=== PATIENT | male | born 1975 | race Caucasian/White ===

== ENCOUNTER 2019-02-03 15:37 | Emergency (ER) | payer MEDICAID ==
[~2019-02-03] VITALS: Ht 195.6 cm; Wt 126.0 kg
[~2019-02-03 15:37] MED LIST: ONDA8TAB6 PO; ORPH100T2 PO; OXYC-150 PO
[2019-02-03] MEDS ORDERED: dexamethasone sod phosphate 10mg/ml inj IM STA (16:36)
[2019-02-03] MEDS ORDERED: HYDR-4383 PO (18:05)
[2019-02-03] MEDS ORDERED: NAPR-56 PO (18:05)
[2019-02-03] MEDS ORDERED: PRED10TA23 PO (18:05)
[2019-02-03] MEDS ORDERED: HYDROcodone/acetaminophen 10/325mg tab PO ONE (18:10)
[2019-02-03 19:10] VITALS: BP 137/89
== END 2019-02-03 19:12 | disposition home or self-care (01) ==
LOC: ER 15:38
DX: S16.1XXA Strain of muscle, fascia and tendon at neck level, initial encounter (principal); R49.0 Dysphonia; K04.7 Periapical abscess without sinus; K02.9 Dental caries, unspecified; G89.29 Other chronic pain; Z91.018 Allergy to other foods; Z79.899 Other long term (current) drug therapy; Z87.442 Personal history of urinary calculi; W18.39XA Other fall on same level, initial encounter; Y93.89 Activity, other specified; Y92.89 Other specified places as the place of occurrence of the external cause; Y99.8 Other external cause status
CPT/HCPCS: 70450; 70490; 96372; 99284; J1100

== ENCOUNTER 2019-09-26 19:45 | Emergency (ER) | payer MEDICAID ==
[~2019-09-26] VITALS: Ht 195.6 cm; Wt 125.0 kg
[~2019-09-26 19:45] MED LIST changes: +HYDR-4383 PO
[2019-09-26 20:07] VITALS: BP 135/99
[2019-09-26] MEDS ORDERED: HYDR-4353 PO (22:19)
[2019-09-26] MEDS ORDERED: naproxen 500mg tablet PO ONE (22:20)
[2019-09-26] MEDS ORDERED: HYDROmorphone 2mg tablet PO ONE (22:20)
== END 2019-09-26 22:39 | disposition home or self-care (01) ==
LOC: ER 19:51
DX: G89.28 Other chronic postprocedural pain (principal); M79.671 Pain in right foot; G89.29 Other chronic pain; Z87.442 Personal history of urinary calculi; Z91.018 Allergy to other foods
CPT/HCPCS: 99283

== ENCOUNTER 2019-09-27 09:52 | Emergency (ER) | payer MEDICAID ==
[~2019-09-27] VITALS: Ht 195.6 cm; Wt 140.0 kg
[~2019-09-27 09:52] MED LIST changes: +HYDR-4353 PO
[2019-09-27 09:54] VITALS: BP 120/71
--- NOTE | 2019-09-27 10:12 | NUR ---
pt came in to have cast taken off
--- NOTE | 2019-09-27 10:39 | NUR ---
Splint taken off by ED Techs, Provider informed and in room for exam.
[2019-09-27] MEDS ORDERED: HYDROcodone/acetaminophen 5mg/325mg tablet PO ONE (10:50)
== END 2019-09-27 12:03 | disposition home or self-care (01) ==
LOC: ER 09:52
DX: G89.18 Other acute postprocedural pain (principal); M79.671 Pain in right foot; G89.29 Other chronic pain; F32.9 Major depressive disorder, single episode, unspecified; Z87.442 Personal history of urinary calculi; Z98.890 Other specified postprocedural states; Z79.899 Other long term (current) drug therapy
CPT/HCPCS: 73610; 99283

== ENCOUNTER 2019-10-21 01:51 | Emergency (ER) | payer MEDICAID ==
[~2019-10-21] VITALS: Ht 195.6 cm; Wt 131.8 kg
[~2019-10-21 01:51] MED LIST changes: -HYDR-4353 PO
[2019-10-21] MEDS ORDERED: OXYC-511 PO (02:21)
[2019-10-21] MEDS ORDERED: NAPR-996 PO (02:21)
[2019-10-21] MEDS ORDERED: ZOLP10TA5 PO (02:21)
[2019-10-21] MEDS ORDERED: MORP30TA6 PO (02:21)
[2019-10-21] MEDS ORDERED: GABA800T11 PO (02:21)
[2019-10-21] MEDS ORDERED: DULO20CA18 PO (02:24)
[2019-10-21 02:38] LABS: BASOPHILS # (AUTO) 0.1 X10'3 (0-0.2); BASOPHILS % (AUTO) 1.3 % (0-1); EOSINOPHILS # (AUTO) 0.2 X10'3 (0-0.9); EOSINOPHILS % (AUTO) 1.6 % (0-6); HEMOGLOBIN 12.5 g/dl (14.0-17.9); LYMPHOCYTES # (AUTO) 1.9 X10'3 (1.1-4.8); LYMPHOCYTES % (AUTO) 19.6 % (21-51); MEAN CORPUSCULAR HEMOGLOBIN 27.7 PG (27.0-31.0); MEAN CORPUSCULAR HGB CONC 33.7 g/dL (33.0-36.5); MEAN CORPUSCULAR VOLUME 82.1 FL (78-98); MEAN PLATELET VOLUME 6.8 FL (7.4-10.4); MONOCYTES # (AUTO) 0.3 X10'3 (0-0.9); MONOCYTES % (AUTO) 3.4 % (2-12); NEUTROPHILS # (AUTO) 7.1 X10'3 (1.8-7.7); NEUTROPHILS % (AUTO) 74.1 % (42-75); PLATELET COUNT 493 X10'3 (140-440); RED BLOOD COUNT 4.51 X10'6 (4.70-6.10); RED CELL DISTRIBUTION WIDTH 15.1 % (11.5-14.5); WHITE BLOOD COUNT 9.6 X10'3 (4.5-11.0)
[2019-10-21 02:47] LABS: ALANINE AMINOTRANSFERASE 13 U/L (12-78); ALBUMIN 3.3 G/DL (3.4-5.0); ALBUMIN/GLOBULIN RATIO 0.7 (1.1-1.5); ALKALINE PHOSPHATASE 88 IU/L (46-116); ANION GAP 7 (8-16); ASPARTATE AMINO TRANSFERASE 23 U/L (10-37); BILIRUBIN,TOTAL 0.4 MG/DL (0.1-1.0); BLOOD UREA NITROGEN 13 MG/DL (7-18); BUN/CREATININE RATIO 14.9 (5.4-32.0); CALCIUM 8.6 MG/DL (8.5-10.1); CHLORIDE 106 MMOL/L (99-107); CREATININE 0.87 MG/DL (0.60-1.10); GLUCOSE 93 MG/DL (70-104); POTASSIUM 4.1 MMOL/L (3.5-5.1); SODIUM 140 MMOL/L (135-145); TOTAL CARBON DIOXIDE 26.7 MMOL/L (24-32); TOTAL PROTEIN 7.8 G/DL (6.4-8.2); eGFR > 90 ML/MIN
[2019-10-21 02:54] LABS: CLARITY,URINE CLEAR (Clear); COLOR,URINE YELLOW (Yellow); GLUCOSE, URINE NEGATIVE (Neg); KETONES,URINE NEGATIVE (Neg); LEUKOCYTE ESTERASE ,URINE NEGATIVE (Neg); NITRITES, URINE NEGATIVE (Neg); OCCULT BLOOD,URINE NEGATIVE (Neg); PROTEIN,URINE NEGATIVE (Neg)
[2019-10-21 03:02] LABS: ETHANOL < 0.010 GM/DL (0.0-0.010)
--- NOTE | 2019-10-21 03:07 | NUR ---
Patient changed into green scrubs. Patient is wearing white undergarment top and bottom which he states are, "sacred" and refuses to remove them due to mosque beliefs.
[2019-10-21 03:09] LABS: URINE AMPHETAMINE SCREEN NEGATIVE (Neg); URINE BARBITUATE SCREEN NEGATIVE (Neg); URINE BENZODIAZEPINES SCREEN POSITIVE (Neg); URINE CANNABINOID SCREEN POSITIVE (Neg); URINE COCAINE SCREEN NEGATIVE (Neg); URINE METHADONE SCREEN NEGATIVE (Neg); URINE OPIATE SCREEN POSITIVE (Neg); URINE PHENCYCLIDINE SCREEN NEGATIVE (Neg)
[2019-10-21 03:12] LABS: UA COLLECTION TYPE CLN CATCH MIDSTREAM
[2019-10-21] MEDS ORDERED: oxyCODONE/APAP 10/325mg tablet PO PRN (03:30)
[2019-10-21] MEDS ORDERED: naproxen 500mg tablet PO PRN (03:30)
[2019-10-21] MEDS ORDERED: DULO30CA52 PO (03:34)
[2019-10-21] MEDS ORDERED: BUSP10TA3 PO (03:34)
[2019-10-21 05:57] VITALS: BP 127/80
--- NOTE | 2019-10-21 05:59 | NUR ---
pt is denying being suicidal and denies ever making statements that he is suicidal. pt reports having depression and a difficult time with his 's medical needs but states that he wants to live for his kids. pt c/o pain in left ankle from a recent surgery.
--- NOTE | 2019-10-21 06:19 | NUR ---
Received Report from Bal ZUNIGA, pt in bed sleeping will continue to monitor.
--- NOTE | 2019-10-21 07:35 | NUR ---
Pt continues to be asleep, all needs met at this time.
[2019-10-21] MEDS ORDERED: morphine ER 30mg tablet PO SCH (08:00)
[2019-10-21] MEDS ORDERED: gabapentin 400mg capsule PO SCH (08:00)
[2019-10-21] MEDS ORDERED: duloxetine 20mg capsule.DR PO SCH (08:00)
[2019-10-21] MEDS ORDERED: duloxetine 30mg CAPSULE.DR PO SCH (08:00)
--- NOTE | 2019-10-21 08:20 | NUR ---
PACKET FAXED TO [facility]
--- NOTE | 2019-10-21 10:55 | NUR ---
[facility] IS RELEASING PT. pT GIVEN BELONGINGS AND IS GETTING DRESSED.
[2019-10-21] MEDS ORDERED: zolpidem 5mg tablet PO PRN (21:00)
== END 2019-10-21 11:17 | disposition home or self-care (01) ==
LOC: ER 01:52
DX: F32.9 Major depressive disorder, single episode, unspecified (principal); F12.90 Cannabis use, unspecified, uncomplicated; G89.29 Other chronic pain; Z87.442 Personal history of urinary calculi; Z98.890 Other specified postprocedural states; Z79.899 Other long term (current) drug therapy
CPT/HCPCS: 36415; 80053; 80305; 80320; 81003; 84443; 85025; 99285

== ENCOUNTER 2024-04-15 06:36 | Emergency (ER) | payer MEDICAID ==
[~2024-04-15] VITALS: Ht 195.6 cm; Wt 145.7 kg
[~2024-04-15 06:36] MED LIST changes: +DULO20CA18 PO; +DULO30CA52 PO; +GABA800T11 PO; -HYDR-4383 PO; +MORP30TA6 PO; +NAPR-996 PO; -ONDA8TAB6 PO; -ORPH100T2 PO; -OXYC-150 PO; +OXYC1TAB17 PO; +ZOLP10TA5 PO
[2024-04-15 08:22] LABS: BASOPHILS % (AUTO) 0.7 % (0-1); EOSINOPHILS # (AUTO) 0.1 X10'3 (0-0.9); EOSINOPHILS % (AUTO) 1.5 % (0-6); HEMATOCRIT 38.3 % (42.0-52.0); HEMOGLOBIN 12.1 g/dl (14.0-17.9); MEAN CORPUSCULAR HEMOGLOBIN 24.6 PG (27.0-31.0); MEAN CORPUSCULAR HGB CONC 31.5 g/dL (33.0-36.5); MEAN CORPUSCULAR VOLUME 78.1 FL (78-98); MONOCYTES # (AUTO) 0.4 X10'3 (0-0.9); MONOCYTES % (AUTO) 8.5 % (2-12); NEUTROPHILS # (AUTO) 3.6 X10'3 (1.8-7.7); NEUTROPHILS % (AUTO) 70.3 % (42-75); PLATELET COUNT 467 X10'3 (140-440); RED BLOOD COUNT 4.91 X10'6 (4.70-6.10); RED CELL DISTRIBUTION WIDTH 21.2 % (11.5-14.5); WHITE BLOOD COUNT 5.2 X10'3 (4.5-11.0)
[2024-04-15 08:31] LABS: APTT 29 SECONDS (22-32); PROTHROMBIN TIME 10.4 SECONDS (9.0-12.0)
[2024-04-15 08:36] LABS: ALANINE AMINOTRANSFERASE 26 U/L (12-78); ALBUMIN 3.6 G/DL (3.4-5.0); ALBUMIN/GLOBULIN RATIO 0.9 (1.1-1.5); ALKALINE PHOSPHATASE 66 IU/L (46-116); ANION GAP 8 (8-16); ASPARTATE AMINO TRANSFERASE 19 U/L (10-37); BILIRUBIN,TOTAL 0.3 MG/DL (0.1-1.0); BLOOD UREA NITROGEN 18 MG/DL (7-18); BUN/CREATININE RATIO 23.1 (10.0-20.0); CALCIUM 8.6 MG/DL (8.5-10.1); CHLORIDE 103 MMOL/L (99-107); CHOL/HDL RATIO 4.2 (0.00-4.99); CHOLESTEROL 137 MG/DL (0-200); CREATININE 0.78 MG/DL (0.60-1.10); GLUCOSE 81 MG/DL (70-104); HDL CHOLESTEROL 33 MG/DL (35-60); LDL CHOLESTEROL 83 MG/DL (50-100); POTASSIUM 4.3 MMOL/L (3.5-5.1); SODIUM 139 MMOL/L (135-145); TOTAL CARBON DIOXIDE 27.9 MMOL/L (24-32); TOTAL PROTEIN 7.6 G/DL (6.4-8.2); TRIGLYCERIDES 99 MG/DL (20-135); eCRCL 148 ML/MIN; eGFR > 90 ML/MIN
[2024-04-15 08:53] LABS: ANISOCYTOSIS 3+; ELLIPTOCYTES FEW; MICROCYTOSIS 1+; PLATELET ESTIMATE INCREASED
[2024-04-15] MEDS ORDERED: iohexol 350MG/ML 100ml bottle IV ONE (13:45)
[2024-04-15 14:18] VITALS: TEMP 98.5
[2024-04-15 16:16] VITALS: BP 127/77; PULSE 82; RESP 16; O2SAT 95
== END 2024-04-15 19:47 | disposition home or self-care (01) ==
LOC: ER 06:38
DX: H53.8 Other visual disturbances (principal); G89.29 Other chronic pain; M54.9 Dorsalgia, unspecified; F41.9 Anxiety disorder, unspecified; D47.3 Essential (hemorrhagic) thrombocythemia; Z91.018 Allergy to other foods
CPT/HCPCS: 36415; 70450; 70496; 80053; 80061; 83036; 85008; 85025; 85610; 85730; 99285; J3490; Q9967